=== PATIENT | female | born 1950 | race Caucasian/White ===

== ENCOUNTER 2024-03-05 16:15 | Emergency (ER) | payer OTHER ==
[~2024-03-05] VITALS: Ht 157.5 cm; Wt 90.7 kg
[2024-03-05] MEDS ORDERED: IBUPROFEN 600 MG TABLET ONE (20:36)
[2024-03-05] MEDS: IBUPROFEN 600 MG TABLET PO ONE (20:36)
[2024-03-05] MEDS ORDERED: NAPR-1164 PO (21:28)
[2024-03-05] MEDS ORDERED: ACET-2605 PO (21:28)
[2024-03-05 23:19] VITALS: BP 157/83; TEMP 98.3; O2SAT 96
== END 2024-03-05 23:20 | disposition home or self-care (01) ==
LOC: EDSEX 17:47 → ER 17:47
DX: S93.491A Sprain of other ligament of right ankle, initial encounter (principal); M25.562 Pain in left knee; M25.561 Pain in right knee; I10 Essential (primary) hypertension; M19.90 Unspecified osteoarthritis, unspecified site; Z60.2 Problems related to living alone; V43.52XA Car driver injured in collision with other type car in traffic accident, initial encounter; Y93.89 Activity, other specified; Y92.488 Other paved roadways as the place of occurrence of the external cause; Y99.8 Other external cause status
CPT/HCPCS: 73564-TC; 73610-TC